=== PATIENT | male | born 1980 | race Caucasian/White ===

== ENCOUNTER 2021-06-15 12:19 | Outpatient (REF) | payer OTHER, SELFPAY ==
--- NOTE | 2021-06-15 10:00 | SKI_PTH ---
PATIENT: Yasmany Fine LOC: [facility]#:[id number] AGE/SX: 40/M ROOM: RE06/15/[address]: Conner Latif : 1980 BED: DIS: 06/15/2021 SPEC #: [id number] RECD: 06/15/21 18:33 STATUS: ZAKIYA REQ #: [id number] LILIANA: 06/15/21 10:[address] RECD BY: Tanesha Brock ENTERED: 06/15/21 18:34 SP TYPE: DANIEL TRIMBLE DR: Delano Rose Tissues: 1 - SKIN BIOPSY(SHAVE/PUNCH) 2 - SKIN BIOPSY(SHAVE/PUNCH) Procedures: SKIN LEVEL 4 Comments: [id number]
== END 2021-06-15 12:20 | disposition home or self-care (01) ==
LOC: NCHCN 12:19
PROVIDERS: PCP Family Medicine; Visit Provider Nurse Practitioner Family
DX: D22.5 Melanocytic nevi of trunk (principal)
CPT/HCPCS: 88305